=== PATIENT | female | born 1995 | race Caucasian/White ===

== ENCOUNTER → 2018-01-23 11:41 | Outpatient (CLI) | payer OTHER, BC, SELFPAY ==
[2018-01-23 12:42] LABS: hCG Titer Quant., Serum 8 mIU/mL (<9 non-preg)
== END ==
PROVIDERS: Visit Provider Obstetrics & Gynecology
DX: N91.2 Amenorrhea, unspecified (principal)
CPT/HCPCS: 36415; 84702

== ENCOUNTER → 2019-03-28 10:02 | Outpatient (CLI) | payer OTHER, BC, SELFPAY ==
[2019-03-28 11:43] LABS: Glucose GTT-Gestation. Fasting 72 mg/dL (<105)
[2019-03-28 12:53] LABS: Glucose GTT-Gestational 1 Hr 154 mg/dL (<190)
[2019-03-28 13:25] LABS: Glucose GTT-Gestational 2 Hr 160 mg/dL (<165)
[2019-03-28 14:19] LABS: Glucose GTT-Gestational 3 Hr 94 L (<145)
== END ==
PROVIDERS: Family Provider Physician Assistant Medical; PCP Physician Assistant Medical; Referring Provider Obstetrics & Gynecology; Visit Provider Obstetrics & Gynecology
DX: O99.810 Abnormal glucose complicating pregnancy (principal); Z3A.00 Weeks of gestation of pregnancy not specified
CPT/HCPCS: 36415; 82951; 82952

== ENCOUNTER 2019-06-13 04:47 | Inpatient (IN) | payer OTHER, BC, SELFPAY ==
[2019-06-13] MEDS: Lactated Ringers 500 ML 999 ML IV (05:00)
[2019-06-13 05:11] VITALS: BMI 23.1
[2019-06-13 05:14] LABS: Absolute Lymphocyte Count 2.18 X10^3/uL (0.83-4.51); Absolute Neutrophil Count 6.3 X10^3/uL (2.0-7.7); Basophil# 0.02 X10^3/uL; Basophil% 0.2 % (0-1); Eosinophil# 0.08 X10^3/uL; Eosinophils% 0.8 % (0-5); Hematocrit 38.3 % (37-47); Hemoglobin 12.7 g/dL (12.0-15.0); Lymphocyte # 2.18 X10^3/ul (4.0); Lymphocyte % 22.9 % (19-41); Mean Corp Hgb Conc 33.2 g/dL (32-36); Mean Corpuscular Hgb 30.5 pg (27.0-32.0); Mean Corpuscular Volume 91.8 fL (81-99); Mean Platelet Vol. 9.3 fl (6.2-12.0); Monocyte% 9.5 % (0-10); NRBC Flagged by Analyzer 0 % (0-5); Neutrophil # 6.27 X10^3/uL (2.7-7.7); Neutrophil % 66.1 % (47-70); Platelet Count 182 K/mm3 (150-450); RBC Distribution Width CV 13.2 % (11.6-14.6); RBC Distribution Width SD 44.8 fl (35.1-43.9); Red Blood Count 4.17 M/mm3 (4.2-5.4); White Blood Count 9.5 K/mm3 (4.4-11.0)
[2019-06-13] MEDS: Lactated Ringers 1,000 ML 200 ML IV (05:40)
[2019-06-13] MEDS: Oxytocin 30 units/NS 500 ml 30 UNITS/500 ML IV.SOLN 334 UNITS IV (07:02)
--- NOTE | 2019-06-13 07:20 | HP.PCM_ITS ---
History and Physical Date of Admission: 06/13/19 [facility] [place] ANTEPARTUM RECORD - HISTORY AND PHYSICAL (06/13/2019) Name: LINDA GAN History of This : This is a 24-year-old 1 para 0 who presents in active labor. Spontaneous rupture of membranes at home this morning. care unremarkable. OB Physician: FREIDA [place]'s Physician: UNDECIDED ...................................................................... : 1995 Age: 24 Address: [address] [place] [address] Phone: (h) [phone] ([phone] Insurance Carrier: SORIN [id number] Emergency Contact: QUINTON GAN [phone] ...................................................................... Final KAYLA: 06/09/19 By Ultrasound: PARITY: (G-Total Pregnancies P-Fullterm,Premature,Induced AB,Spont AB, Ectopics, Multiple,Living) KAYLA CONFIRMATION: By LMP: 09/14/18 Final KAYLA: 06/09/19 OB PROBLEM LIST: 2 foster daughters, ages 3 months and 12 years old (had Thyroid cancer) ANEMIC Ferrous sulfate bid Jorge L David Glucola 170 3 hr GTT--no GDM MSAFP and CF testing declined Plans to breastfeed- office class encouarged Undecided about an epidural - childbirth ed classes encouraged Z: Blake with or [facility] for delivery ALLERGIES: NKDA MEDICATIONS: ferrous sulfate 325 mg (65 mg iron) tablet 1 po bid + DHA 28 mg iron- 975 mcg-200 mg combo pack daily SOCIAL HISTORY: Smoking - Never Alcohol Use - denies drinking Diet - balanced Diet Lifestyle - low stress lifestyle and Exercise - active 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 Illicit Drug Use - denies use of street drugs Sexual Activity - single sexual partner and Residence - lives with Place of - [place], [place] Hours Worked - 40 hours per week Spouse-Sig Other Name - Billy Spouse-Sig Other Occupation - Soil Science Technical Officer at [employer] Spouse-Sig Other Phone No - [phone] PRIOR DELIVERY HISTORY DEL DATE GEST LAB WT LB WT OZ TYPE ANES LABOR TX ANTEPARTUM FLOW CHART VISIT GE RTC FU F F VT U U DATE WK MD WKS HT PN HR M SS BP ED WT VT GL D EF ST __ ____ ___ __ __ ___ __ __ __ ___ __ __ __ ___ __ 17 Feb 40 CH 1 40 V + + 110/70 sl 117 tr - 3+ 50 -2 13 May 39 SHM 1 37 V + + 116/64 1+ 118 tr - 2 50 -3 06 May 38 CH 1 36 V + ++ 110/70 0 116 tr ne 29 Apr JMW 1 35 V + + 108/68 0 119 - - 1 50 P 22 Apr JMW 1 + + 96/52 0 115 tr - 09 Apr SHM 2 32 V + + 92/62 0 113 tr - 18 Apr 22 JMW 3 31 + + 118/64 0 109 - - 04 Apr 20 ELB 2 27 - + + 102/64 0 108 1+ - 04 Apr 20 ELB 2 27 - + + 102/64 0 108 1+ - 07 Mar 17 ELB 3 25 - + + 100/60 0 103 tr - 02 Feb 09 JMW 4 20 + + 126/64 0 98 tr - 02 Feb 09 JMW 4 20 + + 126/64 0 98 tr - 12 Jan 07 JMW 3 17 on 96/68 0 93 - - ANTEPARTUM NOTE(S): Jun 09 2019: feeling well. Membrane sweep. Jun 05 2019: see note May 29 2019: doing well u/s today May 21 2020: Ctxs-mild, GBS Today,Good FM May 14 2019: LARC signed; had to leave May 01 2019: acid reflex Apr 09 2019: Doing Well Mar 26 2019: Mar 26 2019: Feb 27 2019: glucula given Jan 22 2019: Sono Today,Good FM,Feeling Well Jan 22 2019: Sono Today,Good FM,Feeling Well Jan 02 2019: Doing Well COMPREHENSIVE ANTEPARTUM NOTE(S): Jun 09 2019: Reports +FM. FHR 148. SVE today /-2 and membrane sweeping performed. Will return in 1 week for routine PNV and NST. Does NOT want induced until 41.6. 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 Understands when to call or come to . - [facility] Jun 05 2019: Linda is here for a appt. She is 39 wks and 3 days. Slight edema in hands and fingers. Trouble sleeping. Baby is moving good. Urine tr -. MK Jun 05 2019: Routine PNV. Reports +FM. FHR 150. Wishes to have SVE today, 2/50/-3. head is asynclitic with cervix to the far left. Recommended up right positioning to help head engage further. Walking, bouncing on the ball etc.. Membrane sweeping discussed and wants done at next weeks visit. Understands will return in 1 week for routine PNV then at 41 weeks NST to begin as well as IOL before 42 weeks. Reinforced to call or come in with UC Q5-7 minutes for at least one hour or with ROM for GBS+ status. . - May 29 2019: (m*) Routine PNV at 38 weeks with growth scan and REDDY check. Reports +FM. FHR 155 on ultrasound. EFW 62.4th%. REDDY WNL 14.75. HC/AC 0.9 7. Discussed HC/AC and weight with her being so small. Has no plans for epidural, but understands her options and keeping an open mind. Denies regular UC. Understands to call with UC Q 5 minutes apart for at least one hour, decreased FM, ROM or bleeding. Will decide on CNM by next week. To return in 1 week for routine PNV. - , May 28 2019: H taken to OB. tkg May 26 2019: GBS POSITIVE. - May 01 2019: Linda is here for an OB appointment. She is feeling good other than some acid reflux in the evening. Baby boy is moving good and 0 edema reported. with her for appt. Urine tr -. MK May 01 2019: Tums, Pepcid for acid reflux. PTL, ROM precautions. Discussed labor analgesia, consider epidural. Apr 09 2019: US today for growth S< D. Mar 27 2019: ANEMIC: FeSO4 325 mg po bid sent in. GLUCOLA 170 needs 3 hr GTT EB Mar 26 2019: tdaPon Mon. Slightly achy all over. On Keflex for UTI via [facility]. Pressure in RUQ. EB Feb 27 2019: Here for PNV. Doing well. Glucola next visit. Will meet CNM then. She is asking for note for to give to his seminary. He's scheduled to travel out of country in Apr 2019 and due May 2019. Note given to avoid out of country travel after 36 wk, after 05/09/2019 as chance of delivery . RTO for 28 wk labs in 3-4 wks. EB Jan 22 2019: Feeling well; reports active FM; denies UCs, VB, LOF; Comprehensive US done today; reviewed, US, discussed warning signs, s/s PTL; RTO 4 weeks for PNV - KVW Jan 04 2019: O positive RI, Hgb 11.9 g/dl. TSH wnl. EB Jan 02 2019: Linda is here at 17 w 3 d for her NOB visit, she is a with an KAYLA of 06/09/2019. , Billy, accompanies her today, and he seems very happy and supportive. They both express happiness about the , and having had an US today. She and Billy have two foster daughters, one is 3 months old,and the other is 12 years old who had Thyroid cancer recently. Linda states that she is feeling well, and that first trimester nausea has resolved. Delivery at [facility] is planned, she is undecided about having an epidural, and she will breastfeed. Discussed office childbirth and classes. Office practice patterns reviewed, labs drawn prior to NOB visit. She has read through the office handbook, including reporting emergencies/danger signs, and common OTC medications approved/not approved for use during . Discussed reporting suspected to UTI. Reviewed round ligament pain. Linda is a life long non-smoker and denies use of drugs or ETOH. She takes an OTC vitamin and tolerates this well. Genetic Screening form completed. MSAFP and CF testing declined, consent signed as such. 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 She eats a well balanced diet, and drinks mostly water, she doesn't consume much caffeine at all. Reviewed water and dietary needs, including caloric needs, recommended weight gain. Printed guide for food safety provided with review. Linda keeps active at work and takes walks several times a week. Lifting restrictions reviewed. She states that she understands all information provided during NOB visit, and has no questions following same. AW Nov 28 2018: Pap neg. GC and chlamydia NEG. EB Nov 26 2018: Linda is here for missed menses appt with her , Billy. She relates LMP of 09/14, +UPT today in office approx EDC 06/22/19. She has mild sx of , nausea, fatigue, breast tenderness. She has not had any emesis. Mild food aversions. She is taking PNV. Educational materials are provided and reviewed. OTC meds for minor discomforts discussed, increased fluids, and 30 minutes of exercise 5x/wk. REVIEW OF SYSTEMS: GENERAL - Denies fever, or chills SKIN - Denies rash, new skin lesions, or change in moles EYES - Denies blurred vision, or change in visual acuity EARS - Denies ear pain, or difficulty hearing NOSE - Denies nasal congestion, discharge, or bleeding MOUTH - Denies sore throat, or difficulty swallowing NECK - Denies pain or swelling RESPIRATORY - Denies shortness of breath, cough, wheezing CARDIOVASCULAR - Denies palpitations, chest pain, orthopnea, PND, peripheral edema, syncope or claudication GASTROINTESTINAL - Denies nausea, vomiting, diarrhea, constipation, Denies abdominal pain, melena and or bright red blood GENITOURINARY - Denies dysuria, frequency of urination, urgency, or hesitancy MUSCULOSKELETAL - Denies joint or muscle pain, or back pain NEUROLOGICAL - Denies localized numbness, weakness, or tingling PSYCHIATRIC - Denies depression, anxiety, substance abuse or suicide attempts ENDOCRINE - Denies heat or cold intolerance, weight loss or gain, increasing thirst HEMATO-IMMUNOLOGIC - Denies easy bruising, bleeding, oral ulcerations or recurrent infections GENETICS SCREENING: Age 35+ years: No Thalassemia: No Neural Tube Defect: No Down Syndrome: No LEEANN-SACHS: No Sickle Cell Disease: No Hemophilia: No Musc. Dystrophy: No Cystic Fibrosis: No-declines screening Jennifer Chorea: No Mental Retardation: No Fragile X: No Other genetic: No Other defects: No SABs/still births: No Drugs since LMP: No INFECTION HISTORY: High risk AIDS: No High risk Hepatitis: No Exposed to TB: No Exposed to Herpes: No Rash/viral illness since LMP: No History of STD: No MENSTRUAL HISTORY: *Menses Amount/Duration: 5 daysMenses Regularity: RegularFrequency: monthlyMenarche (Age Onset): 10* PAST SUMMARY: PARITY: 1. Total Pregnancies............ 1 2. Full Term Pregnancies........ 0 3. Premature.................... 0 4. Abortions - Induced.......... 0 5. Abortions - Spontaneous...... 0 6. Ectopics..................... 0 7. Multiple Births.............. 0 8. Living Children.............. 0 PHYSICAL EXAMINATION General Appearence: 24 yo female in no acute distress Vital Signs: AF, VSS Heart: RRR without rubs or gallops Lungs: CTA x 2 Breasts: deferred Abdomen: gravid Pelvis: Cervix: 4 cm 95% effaced with gross rupture of membranes Presentation: cephalic Station: 0 Fetus: Size: AGA Movement: present Heart: present Labs for : LINDA GAN since 09/12/2018 ORDER DATEIN DESCRIPTION VALUE UNITS RANGE A+ COMMENT STREP GP B CULTURE 05/21/19 STREP GP B CULTURE Positive Negative A Centers for Disease Control and Prevention (CDC) and [place] [employer] of Obstetricians and Gynecologists (ACOG) guidelines for prevention of group B streptococcal (GBS) disease specify co-collection of a vaginal and rectal swab specimen to maximize sensitivity of GBS detection. Per the CDC and ACOG, swabbing both the lower vagina and rectum substantially increases the yield of detection compared with sampling the vagina alone. . Penicillin G, ampicillin, or cefazolin are indicated for intrapartum prophylaxis of GBS colonization. Reflex susceptibility testing should be performed prior to use of clindamycin only on GBS isolates from penicillin-allergic women who are considered a high risk for anaphylaxis. Treatment with vancomycin without additional testing is warranted if resistance to clindamycin is noted. Reviewed by EMA URINE CULTURE, ROUTINE 05/01/19 URINE CULTURE, ROUTINE Final report RESULT 1 Culture shows less than 10,000 colony forming units of bacteria per milliliter of urine. This colony count is not generally considered to be clinically significant. Reviewed by CHARTMAN GESTATIONAL GTT 3HR 100G 03/28/19 NOTE Original Ordering Provider: Jacki Gonzales GLU GTT-FASTING 72 mg/dL <105 GLUCOSE TOLERANCE TEST FOR Reference Interval GESTATIONAL DIABETES Fasting <105 mg/dL 1 hour <190 mg/dl 2 hour <165 mg/dl 3 hour <145 mg/dl GLU GTT- 1HR 154 mg/dL <190 GLU GTT- 2HR 160 mg/dL <165 GLU GTT- 3HR 94 L <145 Reviewed by JACKI Reviewed by JACKI Reviewed by JACKI Reviewed by JACKI 24-35 Week Labs 03/26/19 HCT/HGB scanned Reviewed by JACKI NTI URINE TUBE (MANCUSO) 01/02/19 NTI URINE TUBE (MANCUSO) . A urine culture transport was received with no test indicated. If testing is required on this specimen, please contact the [email or web address] Client Inquiry/Technical Services Department to obtain a Request for Written Authorization Form. MICROSCOPIC EXAMINATION 01/02/19 WBC 0-5 /hpf 0 - 5 RBC None seen /hpf 0 - 2 EPITHELIAL CELLS (NON RENAL) 0-10 /hpf 0 - 10 EPITHELIAL CELLS (RENAL) CASTS CAST TYPE CRYSTALS CRYSTAL TYPE MUCUS THREADS Present Not Estab. BACTERIA Few None seen/Few YEAST TRICHOMONAS HCV AB W/RFLX TO VERIFICATION 01/02/19 HCV AB <0.1 s/co ratio 0.0-0.9 COMMENT: 01/02/19 COMMENT: Non reactive HCV antibody screen is consistent with no HCV infection, unless recent infection is suspected or other evidence exists to indicate HCV infection. CBC/D/PLT+RPR+UA+RH+ABO+RUB... 01/02/19 TSH 1.840 uIU/mL 0.450-4.500 HBSAG SCREEN Negative Negative RPR Non Reactive Non Reactive RUBELLA ANTIBODIES, IGG 2.08 index Immune >0.99 w Non-immune <0.90 Equivocal 0.90 - 0.99 Immune >0.99 ABO GROUPING O RH FACTOR Positive Please note: Prior records for this patient's ABO / Rh type are not available for additional verification. ANTIBODY SCREEN Negative Negative HIV SCREEN 4TH GENERATION WRFX Non Reactive Non Reactive WBC 6.7 x10E3/uL 3.4-10.8 RBC 3.76 x10E6/uL 3.77-5.28 L HEMOGLOBIN 11.9 g/dL 11.1-15.9 HEMATOCRIT 33.4 % 34.0-46.6 L MCV 89 fL 79-97 MCH 31.6 pg 26.6-33.0 w MCHC 35.6 g/dL 31.5-35.7 RDW 12.4 % 12.3-15.4 PLATELETS 231 x10E3/uL 150-450 NEUTROPHILS 72 % Not Estab. LYMPHS 19 % Not Estab. MONOCYTES 7 % Not Estab. EOS 1 % Not Estab. BASOS 0 % Not Estab. IMMATURE CELLS NEUTROPHILS (ABSOLUTE) 4.8 x10E3/uL 1.4-7.0 LYMPHS (ABSOLUTE) 1.3 x10E3/uL 0.7-3.1 MONOCYTES(ABSOLUTE) 0.5 x10E3/uL 0.1-0.9 EOS (ABSOLUTE) 0.1 x10E3/uL 0.0-0.4 BASO (ABSOLUTE) 0.0 x10E3/uL 0.0-0.2 IMMATURE GRANULOCYTES 1 % Not Estab. IMMATURE GRANS (ABS) 0.0 x10E3/uL 0.0-0.1 NRBC HEMATOLOGY COMMENTS: SPECIFIC GRAVITY 1.014 1.005-1.030 PH 6.0 5.0-7.5 URINE-COLOR Yellow Yellow APPEARANCE Clear Clear WBC ESTERASE Trace Negative A PROTEIN Negative Negative/Trace GLUCOSE Negative Negative KETONES Negative Negative OCCULT BLOOD Negative Negative BILIRUBIN Negativew Negative UROBILINOGEN,SEMI-QN 0.2 mg/dL 0.2-1.0 NITRITE, URINE Negative Negative MICROSCOPIC EXAMINATION See below: Microscopic was indicated and was performed. [id number] 7+ALC-UNBUND 01/02/19 AMPHETAMINES, URINE Negative ng/mL Kavgbh=7756 Amphetamine test includes Amphetamine and Methamphetamine. BARBITURATE Negative ng/mL Yrgfcr=469 BENZODIAZEPINES Negative ng/mL Isiphd=877 CANNABINOID Negative ng/mL Cutoff=50 COCAINE (METAB.) Negative ng/mL Hjkqpz=426 OPIATES Negative ng/mL Wchxxk=564 Opiate test includes Codeine and Morphine only. PHENCYCLIDINE Negative ng/mL Cutoff=25 ETHANOL, URINE Negative % Cutoff=0.020 Reviewed by JACKI GERONIMO,APTIMA HPV,CTNG AGE GDLN 11/26/18 AGE GDLN ACOG TESTING 21-24 IGP, CTNG, RFX APTIMA HPV ASCU 11/26/18 DIAGNOSIS: NEGATIVE FOR INTRAEPITHELIAL LESION OR MALIGNANCY. SPECIMEN ADEQUACY: Satisfactory for evaluation. Endocervical and/or squamous metaplastic cells (endocervical component) are present. CLINICIAN PROVIDED ICD10: Z12.4 PERFORMED BY: Phuong Hollins Segmental Paver Installer ([facility]) . . NOTE: The Pap smear is a screening test designed to aid in the detection of premalignant and malignant conditions of the uterine cervix. It is not a diagnostic procedure and should not be used as the sole means of detecting cervical cancer. Both false-positive and false-negative reports do occur. . TEST METHODOLOGY: This liquid based ThinPrep(R) pap test was screened with the use of an image guided system. . The HPV DNA reflex criteria were not met with this specimen result therefore, no HPV testing was performed. . CHLAMYDIA, NUC. ACID AMP Negativew Negative GONOCOCCUS, NUC. ACID AMP Negative Negative Source.............Cervix;Endocervix LMP / Prev Treat...MMF=[id number] No. of containers..01 ThinPrep Vial Reviewed by JACKI Impression /Plan: 40-week 2-day intrauterine in active labor. Prepa rations in progress for delivery.
--- NOTE | 2019-06-13 07:25 | PCM.OPRPT ---
Vaginal Delivery Maternal Presentation: Active Labor, Spontaneous Rupture of Membranes Amniotic Membrane Rupture Type: Spontaneous at home Amniotic Fluid Description: Clear Final KAYLA: 06/11/19 Final KAYLA Source: US <20 weeks Gestational age: 40 Weeks and 2 Days Date of Procedure: 06/13/19 Pre-Operative Diagnosis: Intrauterine Post-Operative Diagnosis: Intrauterine Surgery/ Procedure Performed: Spontaneous Vaginal Delivery Type of Anesthesia: Local with 1% lidocaine Description of Procedure: Spontaneous vaginal delivery of a viable male with Apgars of 8/9 from an occiput anterior presentation with clear amniotic fluid and normal three-vessel placenta. First-degree midline episiotomy extended to a third-degree midline laceration repaired in layers with 3-0 Rapide suture and Vicryl suture. Sponges okay. Delivery physician: Anthony Rosario MD. Presentation: Vertex Placental Delivery Description: Spontaneous Placenta Disposition: [facility] Cord Vessel Description: 3 Vessels Cord Entanglement: None Estimated Blood Loss: 250 cc A gender: Male (1 minute): 8 (5 minute): 9 Episiotomy Description: Midline, 1st degree Laceration: Midline, 3rd degree Medications given after delivery: IV Pitocin Complications: None
--- NOTE | 2019-06-13 07:28 | DCINST_ITS ---
<Anthony Rosario - Last Filed: 06/13/19 07:28> Discharge Activity: May Shower, May Take a Tub Bath May resume sexual activity in: 4-6 weeks Additional Activity Instructions:: Nothing in the vagina for 4-6 weeks. You may return to work/school in 6 weeks. Call your doctor if you observe: Fever of 101 or Higher, Inability to urinate, Inability to have a bowel movement, Using more than one pad per hour Additional Instructions: If you experience any of the following, contact your healthcare provider. * Bleeding that soaks a pad every hour for 2 hours * Fever 100.4 or higher * Unrelieved incision or abdominal pain * Swelling, redness, discharge or bleeding from your incision or episiotomy site * Your incision begins to separate * Problems urinating (including inability to urinate or burning while urinating). * Visual changes * Severe headache * Flu-like symptoms * Pain or redness in one of both of your breasts * Pain, warmth, tenderness or swelling in your legs, especially the calf area * Frequent nausea and vomiting * Symptoms of depression or anxiety If you experience any of the following, call 911 or go to the nearest Emergency Room. * Chest pain * Problems breathing * Seizure activity * Partial or complete paralysis of a body part, slurred speech, weakness or drooping of the face, or a sudden inability to walk or hold your balance Allergies/Adverse Reactions: Allergies No Known Allergies Allergy (Verified 06/13/19 05:00) The following prescriptions were given: Nipple Ointment [Triple Nipple Ointment] 1 applic TOPICAL UD PRN #30 gm PRN Reason: sore nipple Prescription Printed Please Follow Up With: Anthony Rosario MD - [phone] When: Call to make an appointment with your doctor in 6 weeks. Primary Care Physician: Joleen Dawson PA [Primary Care Provider] - Test Results: Test results from this visit will be discussed in further detail at your follow- up appointment, if applicable. <Moon Abad - Last Filed: 06/15/19 09:11> Additional Instructions: If you experience any of the following, contact your healthcare provider. * Bleeding that soaks a pad every hour for 2 hours * Fever 100.4 or higher * Unrelieved incision or abdominal pain * Swelling, redness, discharge or bleeding from your incision or episiotomy site * Your incision begins to separate * Problems urinating (including inability to urinate or burning while uri nating). * Visual changes * Severe headache * Flu-like symptoms * Pain or redness in one of both of your breasts * Pain, warmth, tenderness or swelling in your legs, especially the calf area * Frequent nausea and vomiting * Symptoms of depression or anxiety If you experience any of the following, call 911 or go to the nearest Emergency Room. * Chest pain * Problems breathing * Seizure activity * Partial or complete paralysis of a body part, slurred speech, weakness or drooping of the face, or a sudden inability to walk or hold your balance Please Follow Up With: Moon Abad MD - Ethel Medley CNM or Anthony Rosario MD When: 2 weeks Test Results: Test results from this visit will be discussed in further detail at your follow- up appointment, if applicable.
[2019-06-13] MEDS: Ibuprofen 600 MG Tablet PO ×3 (07:40→22:57)
[2019-06-13] MEDS: Senna/Docusate Sodium 1 Tablet PO (07:40)
[2019-06-13] MEDS: Dibucaine 30 GM Tube 1 APPLIC TOPICAL (07:41)
[2019-06-13 09:26] VITALS: BP 112/64; PULSE 103; RESP 16; TEMP 37.1
[2019-06-13] MEDS: oxyCODONE 5 MG Tablet PO ×2 (10:35→15:20)
[2019-06-13 12:35] VITALS: BP 115/65; PULSE 106; RESP 18; TEMP 37; O2SAT 99
[2019-06-13] MEDS: Acetaminophen 500 MG Tablet 1000 MG PO ×2 (13:17→23:49)
[2019-06-13 17:00] VITALS: BP 110/62; PULSE 101; RESP 16; TEMP 37; O2SAT 100
[2019-06-13 21:15] VITALS: BP 103/58; PULSE 71; RESP 18; TEMP 36.6
[2019-06-13 23:02] VITALS: BP 98/53; PULSE 80; RESP 18; TEMP 36.5
[2019-06-14] MEDS: oxyCODONE 5 MG Tablet PO (03:15)
[2019-06-14 03:20] VITALS: BP 111/66; PULSE 68; RESP 18; TEMP 36.6
[2019-06-14] MEDS: Ibuprofen 600 MG Tablet PO ×3 (04:58→18:48)
[2019-06-14 08:31] VITALS: BP 102/50; PULSE 81; RESP 14; TEMP 36.3
[2019-06-14] MEDS: Acetaminophen 500 MG Tablet 1000 MG PO ×2 (08:33→17:01)
--- NOTE | 2019-06-14 09:53 | PCM.PN.OB ---
Subjective: Nursing going well, however working on proper latch to prevent nipple soreness. Denies heavy lochia. Her bottom is less sore today, no difficulties walking or voiding. Tolerates PO. Objective: AVSS - Physical Exam Vitals/I&O's: Vital Signs Temp Pulse Resp BP Pulse Ox 97.4 F L 81 14 102/50 L 100 06/14/19 08:31 06/14/19 08:31 06/14/19 08:31 06/14/19 08:31 06/13/19 17:00 Oxygen Delivery Method Room Air Weight: 53.7 kg Body Mass Index (BMI) 23.1 Intake and Output for Last 24 Hours 06/12/19 06/13/19 06/14/19 23:59 23:59 23:59 Intake Total 1371.67 / 1371.67 Output Total 1500 / 1500 Balance -128.33 / -128.33 General: Alert, Oriented x3, Cooperative, No apparent distress HEENT: Atraumatic, Normocephalic Lungs: Clear to auscultation, Normal air movement Cardiovascular: Regular rate, Regular Rhythm, Normal S1, Normal S2 Abdomen: Soft, Non Tender, Non-Distended, - - fundus firm and nontender, moderate lochia Extremities: No edema, No Calf Tenderness Neurological: Neuro grossly intact Psych/Mental Status: Normal Affect, Appropriate, Alert and oriented to time, place, person, mood and affect Comment: Right nipple erythema with small crack Current Medications Acetaminophen (Tylenol) 1,000 mg PO Q8H PRN PRN PRN Reason: Pain Score 1-3/10 Last Admin: 06/14/19 08:33 Dose: 1,000 mg Documented by: Bisacodyl (Dulcolax) 10 mg RECTAL UD PRN PRN Reason: If no BM Dibucaine (Dibucaine) 1 applic TOPICAL TID PRN PRN; Protocol PRN Reason: Discomfort Last Admin: 06/13/19 07:41 Dose: 1 applicatio Documented by: Hydrocortisone (Hytone) 1 applic TOPICAL TID PRN PRN; Protocol PRN Reason: Discomfort Ibuprofen (Motrin) 600 mg PO Q6H PRN PRN PRN Reason: Pain Score 1-3/10 Last Admin: 06/14/19 04:58 Dose: 600 mg Documented by: Methylergonovine Maleate (Methergine) 0.2 mg IM X1 PRN PRN Reason: Excess bleeding/uterine atony Ondansetron HCl (Zofran) 4 mg IV Q4H PRN PRN PRN Reason: Nausea Oxycodone HCl (Oxyir) 5 - 10 mg PO Q4H PRN PRN PRN Reason: Pain Score 4-10/10 Last Admin: 06/14/19 03:15 Dose: 5 mg Documented by: Senna/Docusate Sodium (Senokot-S, Mar-Colace) 1 - 2 tablet PO DAILY PRN PRN PRN Reason: Constipation Last Admin: 06/13/19 07:40 Dose: 2 tablet Documented by: Simethicone (Mylicon) 80 mg PO PCHS PRN PRN Reason: Indigestion/Stomach pain Sodium Chloride () 5 - 15 ml IV UD PRN PRN Reason: SALINE FLUSH Throat Lozenges (Dermoplast (Sp)) 1 applic TOPICAL 4X/DAY PRN PRN; Protocol PRN Reason: Pain Score 1-10/10 Last Admin: 06/13/19 13:17 Dose: 1 applic Documented by: Zolpidem Tartrate (Ambien (Generic)) 5 mg PO QHS PRN PRN PRN Reason: Insomnia Medical Necessity - Tobacco Use Smoking Status: Never smoker Assessment/Plan 24yo PPD#1 s/p with 3rd degree perineal laceration doing well. -O positive, Rubella immune, RPR nr - - triple nipple ointment -Routine care
[2019-06-14 14:00] VITALS: BP 101/56; PULSE 99; RESP 14; TEMP 36.4
[2019-06-14 17:00] VITALS: BP 108/69; PULSE 95; RESP 14; TEMP 36.7
[2019-06-14] MEDS: Senna/Docusate Sodium 1 Tablet PO (18:48)
[2019-06-14 20:15] VITALS: BP 122/81; PULSE 83; RESP 16; TEMP 36.6
[2019-06-15 01:05] VITALS: BP 90/45; PULSE 58; RESP 16; TEMP 36.7
[2019-06-15] MEDS: Ibuprofen 600 MG Tablet PO (04:43)
[2019-06-15 07:45] VITALS: BP 111/69; PULSE 86; RESP 15; TEMP 36.6
--- NOTE | 2019-06-15 09:02 | PCM.PN.OB ---
Subjective: Nursing going better. Denies heavy lochia. Reports some concerns about depression. Denies depressed mood or other anxiety today. Objective: AVSS - Physical Exam Vitals/I&O's: Vital Signs Temp Pulse Resp BP Pulse Ox 98 F 86 15 111/69 100 06/15/19 07:45 06/15/19 07:45 06/15/19 07:45 06/15/19 07:45 06/13/19 17:00 Oxygen Delivery Method Room Air Weight: 53.7 kg Body Mass Index (BMI) 23.1 Intake and Output for Last 24 Hours 06/13/19 06/14/19 06/15/19 23:59 23:59 23:59 Intake Total 1371.67 / 1371.67 Output Total 1500 / 1500 Balance -128.33 / -128.33 General: Alert, Oriented x3, Cooperative, No apparent distress HEENT: Atraumatic, Normocephalic Lungs: Clear to auscultation, Normal air movement Cardiovascular: Regular rate, Regular Rhythm, Normal S1, Normal S2 Abdomen: Soft, Non Tender, Non-Distended, - - fundus firm and nontender Extremities: No edema, No Calf Tenderness Neurological: Neuro grossly intact Psych/Mental Status: Normal Affect, Appropriate, Alert and oriented to time, place, person, mood and affect Current Medications Acetaminophen (Tylenol) 1,000 mg PO Q8H PRN PRN PRN Reason: Pain Score 1-3/10 Last Admin: 06/14/19 17:01 Dose: 1,000 mg Documented by: Bisacodyl (Dulcolax) 10 mg RECTAL UD PRN PRN Reason: If no BM Dibucaine (Dibucaine) 1 applic TOPICAL TID PRN PRN; Protocol PRN Reason: Discomfort Last Admin: 06/13/19 07:41 Dose: 1 applicatio Documented by: Hydrocortisone (Hytone) 1 applic TOPICAL TID PRN PRN; Protocol PRN Reason: Discomfort Ibuprofen (Motrin) 600 mg PO Q6H PRN PRN PRN Reason: Pain Score 1-3/10 Last Admin: 06/15/19 04:43 Dose: 600 mg Documented by: Methylergonovine Maleate (Methergine) 0.2 mg IM X1 PRN PRN Reason: Excess bleeding/uterine atony Ondansetron HCl (Zofran) 4 mg IV Q4H PRN PRN PRN Reason: Nausea Oxycodone HCl (Oxyir) 5 - 10 mg PO Q4H PRN PRN PRN Reason: Pain Score 4-10/10 Last Admin: 06/14/19 03:15 Dose: 5 mg Documented by: Senna/Docusate Sodium (Senokot-S, Mar-Colace) 1 - 2 tablet PO DAILY PRN PRN PRN Reason: Constipation Last Admin: 06/14/19 18:48 Dose: 2 tablet Documented by: Simethicone (Mylicon) 80 mg PO PCHS PRN PRN Reason: Indigestion/Stomach pain Sodium Chloride () 5 - 15 ml IV UD PRN PRN Reason: SALINE FLUSH Throat Lozenges (Dermoplast (Sp)) 1 applic TOPICAL 4X/DAY PRN PRN; Protocol PRN Reason: Pain Score 1-10/10 Last Admin: 06/13/19 13:17 Dose: 1 applic Documented by: Zolpidem Tartrate (Ambien (Generic)) 5 mg PO QHS PRN PRN PRN Reason: Insomnia Medical Necessity - Tobacco Use Smoking Status: Never smoker Assessment/Plan 24yo PPD#2 s/p with 3rd degree perineal laceration doing well. -O positive, Rubella immune, RPR nr - -Si/sx depression vs. baby blues reviewed -f/u in 2 weeks
--- NOTE | 2019-06-15 09:11 | PCM.DC.SUM ---
Discharge Date and Diagnosis Date of Admission: 06/13/19 Date of Discharge: 06/15/19 Hospital Course and Treatment Consultations 06/13/19 05:01 Consult: Anesthesia Routine Comment: Reason For Exam: Labor Operations: None Procedures: None Summary of Care Provided: The patient is a 24 year old 1 admitted at 40 2/7 weeks gestation in active labor. She had an with 3rd degree perineal laceration. Her course was unremarkable and she was discharged to home on day #2. - Physical Exam Vitals/I&O's: Vital Signs Temp Pulse Resp BP Pulse Ox 98 F 86 15 111/69 100 06/15/19 07:45 06/15/19 07:45 06/15/19 07:45 06/15/19 07:45 06/13/19 17:00 Oxygen Delivery Method Room Air Weight: 53.7 kg Body Mass Index (BMI) 23.1 Intake and Output for Last 24 Hours 06/13/19 06/14/19 06/15/19 23:59 23:59 23:59 Intake Total 1371.67 / 1371.67 Output Total 1500 / 1500 Balance -128.33 / -128.33 Current Medications Acetaminophen (Tylenol) 1,000 mg PO Q8H PRN PRN PRN Reason: Pain Score 1-3/10 Last Admin: 06/14/19 17:01 Dose: 1,000 mg Documented by: Bisacodyl (Dulcolax) 10 mg RECTAL UD PRN PRN Reason: If no BM Dibucaine (Dibucaine) 1 applic TOPICAL TID PRN PRN; Protocol PRN Reason: Discomfort Last Admin: 06/13/19 07:41 Dose: 1 applicatio Documented by: Hydrocortisone (Hytone) 1 applic TOPICAL TID PRN PRN; Protocol PRN Reason: Discomfort Ibuprofen (Motrin) 600 mg PO Q6H PRN PRN PRN Reason: Pain Score 1-3/10 Last Admin: 06/15/19 04:43 Dose: 600 mg Documented by: Methylergonovine Maleate (Methergine) 0.2 mg IM X1 PRN PRN Reason: Excess bleeding/uterine atony Ondansetron HCl (Zofran) 4 mg IV Q4H PRN PRN PRN Reason: Nausea Oxycodone HCl (Oxyir) 5 - 10 mg PO Q4H PRN PRN PRN Reason: Pain Score 4-10/10 Last Admin: 06/14/19 03:15 Dose: 5 mg Documented by: Senna/Docusate Sodium (Senokot-S, Mar-Colace) 1 - 2 tablet PO DAILY PRN PRN PRN Reason: Constipation Last Admin: 06/14/19 18:48 Dose: 2 tablet Documented by: Simethicone (Mylicon) 80 mg PO PCHS PRN PRN Reason: Indigestion/Stomach pain Sodium Chloride () 5 - 15 ml IV UD PRN PRN Reason: SALINE FLUSH Throat Lozenges (Dermoplast (Sp)) 1 applic TOPICAL 4X/DAY PRN PRN; Protocol PRN Reason: Pain Score 1-10/10 Last Admin: 06/13/19 13:17 Dose: 1 applic Documented by: Zolpidem Tartrate (Ambien (Generic)) 5 mg PO QHS PRN PRN PRN Reason: Insomnia Discharge Activity: May Shower, May Take a Tub Bath May resume sexual activity in: 4-6 weeks Additional Activity Instructions:: Nothing in the vagina for 4-6 weeks. You may return to work/school in 6 weeks. Call your doctor if you observe: Fever of 101 or Higher, Inability to urinate, Inability to have a bowel movement, Using more than one pad per hour Home Medications: Medications to take at Discharge Nipple Ointment [Triple Nipple Ointment] 1 applic TOPICAL UD PRN #30 gm 06/14/19 Following Prescrptions Were Given to Patient: Nipple Ointment [Triple Nipple Ointment] 1 applic TOPICAL UD PRN #30 gm PRN Reason: sore nipple Prescription Printed Primary Care Physician: Joleen Dawson PA [Primary Care Provider] - Please Follow Up With: Anthony Rosario MD - [phone] Please Follow Up With: Moon Abad MD - Ethel Medley CNM or Anthony Rosario MD When: 2 weeks Medical Necessity - Tobacco Use Smoking Status: Never smoker Meaningful Use Info Meaningful Use Diagnoses (Choose all that apply): None applicable
== END 2019-06-15 10:30 | disposition home or self-care (01) | DRG 768 ==
PROVIDERS: Admitting Provider Obstetrics & Gynecology; PCP Physician Assistant Medical; Visit Provider Obstetrics & Gynecology
DX: O70.20 Third degree perineal laceration during delivery, unspecified (principal); Z37.0 Single live birth; Z3A.40 40 weeks gestation of pregnancy
CPT/HCPCS: 59025; 59050; 85025; 86850; 86900; 86901; 99218; J7120; G0378